=== PATIENT | female | born 1960 | race Caucasian/White ===

== ENCOUNTER 2017-03-23 14:41 | Emergency (ER) | payer OTHER ==
[~2017-03-23 14:41] MED LIST: AMOXIL500 M1 PO; CLONIDINE PO; FLEXERIL PO; FLEXERIL10 MG PO; HYDROCHLOROTHIA25 MG PO; K-DUR20 ME1 DOB; LISINOPRIL PO; LISINOPRIL20 MG PO; LOPRESSOR PO; NAPROXEN PO; NO MEDICATIONS; PEN-VEE K PO; PREDNISONE50 MG PO; TYLOX 5/500 CAP1 CAP PO; VOLTAREN75 MG PO; XANAX0.5 MG PO
== END 2017-03-23 16:05 | disposition home or self-care (01) ==
LOC: CED 14:41 → CFTX 15:58 → CED 16:05
DX: J02.9 Acute pharyngitis, unspecified (principal); H92.01 Otalgia, right ear; I10 Essential (primary) hypertension; F17.200 Nicotine dependence, unspecified, uncomplicated
CPT/HCPCS: 99282

== ENCOUNTER 2017-05-01 20:58 | Emergency (ER) | payer OTHER ==
[~2017-05-01] VITALS: Ht 167.6 cm; Wt 72.6 kg
--- NOTE | ~2017-05-01 | CT4 ---
[facility] A Service of [facility] & [facility] RADIOLOGY TEXT RESULTS PATIENT: ANALY RAMSAY LOCATION: [facility] : 56 UNIT #: [id number] AGE: [address]: Darren Garcia MD SEX: F ORDER DR: [id number] [facility] [address] [place], [place] [address] [id number] E MR#: [id number] #: [id number] NAME: ANALY RAMSAY : 1960 SEX: F STUDY DATE/TIME: 05/02/2017 03:10 UNIT: [facility] ROOM: STUDY DESCRIPTION: CT Abd and Pelv Wo Cont Attending Physician: Gavino Garcia M.D. Referring Physician: No Primary Care Physician Ordering Physician: Gavino Garcia M.D. Primary Care Physician: No Primary Care Physician MEDICAL IMAGING REPORT This report is preliminary unless electronic signature is present EXAM CT abdomen and pelvis, 05/02 at 03:10. INDICATIONS Left side abdominal pain and back pain for 1 week with nausea and vomiting. TECHNIQUE Axial noncontrast images were obtained through the abdomen and pelvis. Multiplanar reformats were obtained. No comparison. This CT exam was performed with one or more of the following radiation dose reduction techniques: automatic exposure control, adjustment of mA and/or kV according to patient size, and iterative reconstruction. FINDINGS Abdomen: There is some scarring or atelectasis in the lung bases. Gallbladder unremarkable. No renal or ureteral stones are identified. There is no hydronephrosis. Unenhanced solid organs are normal. Unopacified GI tract is grossly normal. There is no free fluid. Pelvis: The appendix is normal. The remainder of the unopacified GI tract is normal as well. Urinary bladder is normal. There are no lower ureteral stones. Solid pelvic organs are grossly normal. There is degenerative disease with scoliosis in the lumbar spine. IMPRESSION 1. No renal or ureteral stones. No hydronephrosis. 2. Grossly normal unopacified GI tract, including the appendix. 3. No acute findings are identified in the abdomen or pelvis. Dictated by... Teo Martinez Jr., M.D. THIS IS AN ELECTRONICALLY VERIFIED REPORT [facility] A Service of [facility] RADIOLOGY TEXT RESULTS PATIENT: ANALY RAMSAY LOCATION: [facility] : 56 UNIT #: [id number] AGE: [address]: Darren Garcia MD SEX: F ORDER DR: Teo Martinez Jr., M.D. at 05/02/2017 9:40 PM KEILY/naina TD: 05/02/2017 10:02 JOB #: [id number] MEDICAL IMAGING REPORT Page 1 of 1 COPY
--- NOTE | ~2017-05-01 | CR72 ---
[facility] A Service of [facility] & [facility] RADIOLOGY TEXT RESULTS PATIENT: ANALY RAMSAY LOCATION: [facility] : 56 UNIT #: [id number] AGE: [address]: Darren Garcia MD SEX: F ORDER DR: [id number] [facility] [address] [place], [place] [address] [id number] E MR#: [id number] Acc #: [id number] NAME: ANALY RAMSAY : 1960 SEX: F STUDY DATE/TIME: 05/02/2017 01:20 UNIT: [facility] ROOM: STUDY DESCRIPTION: CR Chest Single View Portable Attending Physician: Gavino Garcia M.D. Referring Physician: No Primary Care Physician Ordering Physician: Gavino Garcia M.D. Primary Care Physician: No Primary Care Physician MEDICAL IMAGING REPORT This report is preliminary unless electronic signature is present EXAM Portable chest, 05/02 at 01:20. INDICATIONS Shortness of air and weakness for the last 2 days. History of hypertension. FINDINGS AP portable chest is compared with 01/01/2010. The heart is enlarged. Lung volumes are low. There is some chronic left base scarring. Lungs otherwise are clear. No pneumothorax. IMPRESSION Low-volume inspiration with cardiomegaly. Chronic left base scarring. No acute infiltrates or pneumothorax. Dictated by... Teo Martinez Jr., M.D. THIS IS AN ELECTRONICALLY VERIFIED REPORT Teo Martinez Jr., M.D. at 05/02/2017 9:39 PM KEILY/naina TD: 05/02/2017 09:43 JOB #: [id number] MEDICAL IMAGING REPORT Page 1 of 1 COPY
[2017-05-02 00:33] LABS: URINE SOURCE CLEAN CATCH
[2017-05-02 00:40] LABS: URINE APPEARANCE CLEAR; URINE BILIRUBIN NEG (NEG); URINE BLOOD TRACE (NEG); URINE COLOR YELLOW; URINE GLUCOSE NEG (NEG); URINE KETONE NEG (NEG); URINE LEUKOCYTE ESTERASE NEG (NEG); URINE NITRATE NEG (NEG); URINE PROTEIN NEG (NEG); URINE SPECIFIC GRAVITY 1.021 (1.003-1.035)
[2017-05-02 00:42] LABS: U HYALINE CASTS AUWI 0-2 /[LPF]; URINE BACTERIA AUWI NEG (NEGATIVE); URINE SQUAMOUS EPITHELIAL CELL OCC /[HPF]; UWBCS1 AUWI 0-2 (0-5)
[2017-05-02 00:43] LABS: CULTURE INDICATED? NO
[2017-05-02 00:55] LABS: BASOPHIL% 0.4 % (0-2.5); DIFF IND NO; EOSINOPHIL# 0.3 X10e3 (0-0.7); EOSINOPHIL% 4.4 % (0.0-7.0); HEMATOCRIT 41.8 % (35.0-45.0); HEMOGLOBIN 13.8 gm/dL (12.0-16.0); LYMPHOCYTE# 2.8 X10e3 (1.0-3.5); LYMPHOCYTE% 39.2 % (17.0-45.0); MEAN CELL VOLUME 86.3 FL (83-96); MEAN CORPUSCULAR HEMOGLOBIN 28.5 PG (28-34); MEAN PLATELET VOLUME 9.8 FL (6.5-11.5); MONOCYTE# 0.5 X10e3 (0-1.0); NEUTROPHIL# 3.4 X10e3 (1.5-7.1); PLATELET COUNT 178 X10e3 (140-420); RED BLOOD COUNT 4.84 X10e (3.90-5.30); RED CELL DISTRIBUTION WIDTH 13.7 % (11.0-15.5)
[2017-05-02 01:19] LABS: AMYLASE 22 U/L (0-46); BLOOD UREA NITROGEN 12 mg/dL (9-23); CALCIUM SERUM 9.1 mg/dL (8.4-10.2); CARBON DIOXIDE 30 mmol/L (22-31); CHLORIDE 104 mmol/L (100-111); CREATININE SERUM 0.8 mg/dL (0.6-1.4); GLOM FILT RATE Estimated 80.8 mL/min (>60); GLUCOSE FASTING 81 mg/dL (70-110); LIPASE 24 U/L (22-51); POTASSIUM 3.4 mmol/L (3.5-5.1); SODIUM 140 mmol/L (135-145)
[2017-05-02 01:20] LABS: ALCOHOL BLOOD <5 mg/dL (0)
[2017-05-02 01:40] LABS: AMPHETAMINE NEG (NEG); BARBITURATES NEG (NEG); BENZODIAZEPINES POS (NEG); COCAINE NEG (NEG); MARIJUANA NEG (NEG); OPIATES NEG (NEG); TRICYCLIC ANTIDEPRESSANTS NEG (NEG); U METHADONE NEG (NEG)
== END 2017-05-02 03:53 | disposition home or self-care (01) ==
LOC: CED 20:58
PROVIDERS: Emergency Medicine
DX: S39.012A Strain of muscle, fascia and tendon of lower back, initial encounter (principal); I10 Essential (primary) hypertension; F17.210 Nicotine dependence, cigarettes, uncomplicated; X50.1XXA Overexertion from prolonged static or awkward postures, initial encounter; Y93.89 Activity, other specified
CPT/HCPCS: 71010; 74176; 80048; 80307; 81003; 82150; 83690; 85025; 96374; 99284; G0480; J1885